=== PATIENT | female | born 1995 | race African-American/Black ===

== ENCOUNTER 2016-10-29 10:15 | Emergency (ER) | payer OTHER ==
[~2016-10-29] VITALS: Ht 172.7 cm; Wt 118.8 kg
[~2016-10-29 10:15] MED LIST: ALBU1AER9 INH; BCPILLS PO; CHOL100010 PO; LEVO150T PO
[2016-10-29 10:19] VITALS: TEMP 37.1; Ht 172.7 cm; Wt 118.8 kg
[2016-10-29] MEDS ORDERED: CEPH500C PO (10:40)
[2016-10-29] MEDS ORDERED: METH500T37 PO (10:48)
[2016-10-29] MEDS ORDERED: NORT50CA PO (10:48)
[2016-10-29 11:00] VITALS: BP 134/99; PULSE 79; O2SAT 97
--- NOTE | 2016-10-29 15:43 | EMERGENCY ROOM VISIT NOTE ---
History Report prepared by Norah: Lalo Aguirre Under the Supervision of: Dr. Kiran Loco M.D. First contact with patient: 10:23 Chief Complaint: INFECTION Stated Complaint: CUT IN MOUTH WON'T HEAL/SKIN RASH, INFECTION History of Present Illness The patient is a 20 year old female who presents to the Emergency Room with complaints of a persistent cut in her mouth that started 4 days ago. She says the cut is on the bottom, outside of her gum. She states that she does not know how she got the cut, and it just appeared that day. Her cut is not getting any better. She says that she does not grind her teeth at night, and does not think she did anything to get the cut. For the past 2 days, she has had trouble eating or putting any pressure around her cut. The patient also notes a small rash on her left forearm, which showed up around the same time as her cut showed up. She says that she did not cut her arm. The rash was not itchy or painful until she put Neosporin on it. She has stopped putting Neosporin on it. The patient denies any fevers, vomiting, recent illness, diarrhea, urinary symptoms, or tooth pain. She says she does not have any other rashes on her skin other than the one on her arm. She is on watch for being a prediabetic. The patient denies any chance of . She is currently being treated for post-concussion syndrome. Source of History: patient Onset: 4 days ago Position: other (mouth - bottom, outside of gum) Symptom Intensity: difficulty eating due to cut Timing: other (persistent) Associated Symptoms: No diarrhea, No fevers, No urinary symptoms, No vomiting Note: Associated symptoms: Small rash on left forearm. Denies any recent illnesses or tooth pain. Review of Systems See HPI for pertinent positives & negatives. A total of 10 systems reviewed and were otherwise negative. Past Medical & Surgical Medical Problems: (1) Alcohol intoxication with blood level 0.08-0.29 (2) Asthma (3) Hypothyroidism Nos (4) RA (rheumatoid arthritis) Surgical Problems: (1) S/P ACL reconstruction Family History Patient reports no known family medical history. Social History Smoking Status: Former Smoker Marital Status: single Occupation Status: employed, [employer] student Current/Historical Medications Scheduled Albuterol (Proair Hfa), 2 PUFFS INH QID Control Pills ( Control Pills), 1 TAB PO DAILY Cephalexin Monohydrate (Keflex), 500 MG PO TID Levothyroxine Sodium (Synthroid), 150 MCG PO DAILY Nortriptyline (Pamelor), 50 MG PO QPM Scheduled PRN Methocarbamol (Robaxin), 500 MG PO DAILY PRN for Muscle Spasms Allergies Coded Allergies: No Known Allergies (Unverified , 10/29/16) Physical Exam Vital Signs Date Time Temp Pulse Resp B/P Pulse Ox O2 Delivery O2 Flow Rate FiO2 10/29/16 11:00 79 16 134/99 97 10/29/16 10:19 37.1 97 20 135/81 97 Room Air Physical Exam Constitutional: Vital signs reviewed. Eyes: Pupils are equal round reactive to light. Conjunctiva are noninjected. No dental tenderness. No swelling to gums. Erythema and tenderness to inner cheek on right side, adjacent to the posterior molars without ulceration. ENT: Pharynx is clear without erythema or exudate. Mucous membranes are moist. Neck supple without meningeal signs. Respiratory: Clear to auscultation bilaterally. Breath sounds are equal bilaterally. Cardiovascular: Regular rate and rhythm. No rubs or gallops. GI: Soft, nondistended and nontender. Bowel sounds are present. Musculoskeletal: 1 cm tender lesion over left forearm with mild surrounding erythema and clear discharge from border. Integumentary: No cyanosis. Neurological: The patient is awake and alert. No focal deficits. Psychiatric: Normal affect. Medical Decision & Procedures ED Course 1025: The patient was evaluated in room A9B. A complete history and physical exam was performed. The patient verbally expressed understanding and agreement of the treatment plan. The patient will be discharged. Medical Decision This is a 20-year-old female presents with mouth pain and a rash. Differential diagnosis includes aphthous ulcer, herpes simplex, gingivitis, oral carcinoma, cellulitis. I did perform a limited focused review of portions of the patient' s old chart on the electronic medical record. The patient has had no recent pertinent visits to this hospital. I did evaluate the patient as noted above. The patient has a erythematous tender region of her inner cheek on the right side. There is no laceration or vesicle on examination. It is unclear what is causing this. I did recommend rinses with baking soda or salt water and follow up with her doctor and/or dentist. She also has a small lesion over the left forearm which has some mild erythema over it. It is unclear what the lesion is but I will treat her with Keflex for possible secondary infection. Again she was advised follow closely with her doctor. She was discharged with a prescription for Keflex. Impression Primary Impression: Cheek injury Additional Impression: Skin lesion Scribe Attestation The scribe's documentation has been prepared under my direct and personally reviewed by me in its entirety. I confirm that the note above accurately reflects all work, treatment, procedures, and medical decision making performed by me. Departure Information Dispostion Home / Self-Care Prescriptions Cephalexin Monohydrate (Keflex) 500 Mg Cap 500 MG PO TID, #30 CAP Prov: Kiran Loco M.D. 10/29/16 Referrals Remi Gonzalez M.D. (PCP) Forms HOME CARE DOCUMENTATION FORM, IMPORTANT VISIT INFORMATION, WORK / SCHOOL INSTRUCTIONS Patient Instructions My [facility] Additional Instructions You have been examined and treated today on an emergency basis only. This is not a substitute for, or an effort to provide, complete comprehensive medical care. It is impossible to recognize and treat all injuries or illnesses in a single emergency department visit. It is therefore important that you follow up closely with your physician and dentist. Call as soon as possible for an appointment. Return for worsening symptoms or if you develop fever, vomiting, facial swelling or any other concerning symptoms. Problem Qualifiers Primary Impression: Cheek injury Encounter type: initial encounter Qualified Codes: S09.93XA - Unspecified injury of face, initial encounter
== END 2016-10-29 11:02 | disposition home or self-care (01) ==
LOC: C.EDB 10:16 → C.EDA 11:02
DX: S09.93XA Unspecified injury of face, initial encounter (principal); X58.XXXA Exposure to other specified factors, initial encounter; J45.909 Unspecified asthma, uncomplicated; E03.9 Hypothyroidism, unspecified; M06.9 Rheumatoid arthritis, unspecified; Z87.891 Personal history of nicotine dependence

== ENCOUNTER → 2017-01-01 | Outpatient (CLI) | payer OTHER ==
[~2017-01-01] MED LIST changes: +CEPH500C PO; -CHOL100010 PO; +METH500T37 PO; +NORT50CA PO
[2017-01-04 00:36] LABS: CHLAMYDIA TRACH RNA*** NOT DETECTED (NOT DETECTED); GC (NEIS GONORRHOEAE)RNA** NOT DETECTED (NOT DETECTED)
== END | disposition home or self-care (01) ==
LOC: C.LABSPEC 18:01
PROVIDERS: ATTEND Obstetrics & Gynecology
DX: Z11.3 Encounter for screening for infections with a predominantly sexual mode of transmission (principal)

== ENCOUNTER → 2017-05-14 | Outpatient (CLI) | payer OTHER ==
[~2017-05-14] MED LIST changes: -CEPH500C PO
[2017-05-14 17:57] LABS: THYROID STIMULATING HORMONE 0.12 uIu/ml (0.300-4.500)
[2017-05-16 22:59] LABS: CHLAMYDIA TRACH RNA*** NOT DETECTED (NOT DETECTED); GC (NEIS GONORRHOEAE)RNA** NOT DETECTED (NOT DETECTED)
== END | disposition home or self-care (01) ==
LOC: C.LAB1850 15:33
PROVIDERS: ATTEND Physician Assistant
DX: N89.8 Other specified noninflammatory disorders of vagina (principal); E03.9 Hypothyroidism, unspecified